=== PATIENT | female | born 1990 | race African-American/Black ===

== ENCOUNTER 2019-07-19 03:11 | Inpatient (IN) | payer MEDICAID ==
[~2019-07-19 03:11] MED LIST: Bupivacaine 0.25% 10 ML SDV ONE
[2019-07-19] MEDS ORDERED: Sodium Chloride 0.9% 10 ML Syringe FLUSH PRN (16:48)
[2019-07-19] MEDS ORDERED: Ondansetron 4 MG/2 ML SDV IVPUSH PRN ×2 (16:48→18:43)
[2019-07-19] MEDS ORDERED: Nalbuphine 10 MG/ML Syringe IVPUSH PRN (16:48)
[2019-07-19] MEDS ORDERED: Ampicillin 2 GM in Sodium Chloride 0.9% 100 ML IV ONE (17:00)
[2019-07-19] MEDS ORDERED: Oxytocin/Lactated Ringers 10 UNIT/1,000 ML BAG IV SCH ×2 (17:00)
--- NOTE | 2019-07-19 17:32 | PCM.LDHP ---
L&D History of Present Illness - General Date of Service: 07/19/19 Admit Problem/Dx: Patient Status Order with Admit Dx/Problem 07/19/19 16:48 Patient Status [ADT] Routine Admission Diagnosis/Problem Admission Diagnosis/Problem Source of Information: Patient History Limitations: Reports: No Limitations - History of Present Illness Introduction:: Slime Campa is a 28-year-old -0-0-3 at 39 weeks 3 days (VARSHA 07/23/2019) who presents for elective induction of labor. She reports that she has been having increased amounts of contractions and more frequent lower abdominal and pelvic pain. She has been having more constant back pain as well since her last appointment on 07/17/2019. She denies any leaking of fluid but thinks that her mucous plug came out with an increased amount of mucoid discharge last night. She denies any vaginal bleeding. She continues to have decreased movement at this time. Associated Symptoms: Reports: vaginal discharge (Mucus discharge), mild amount. Denies: vaginal bleeding, vaginal fluid Present Illness Comments:: Slime Campa is a 28-year-old -0-0-3 at 39 weeks 3 days (VARSHA 07/23/2019) who presents for elective induction of labor. Her has been overall uncomplicated and she has had routine care with myself, Dr. Barnes, starting at 16 weeks gestational age. She has not had any significant complications during this . She declined Tdap and flu vaccine during the . Her has been complicated by: * GBS positive with GBS positive swab at her visit at 36 weeks gestational age on 06/29/2019 * Anemia with hemoglobin of 9.1 on 06/29/2019. She was started on iron supplementation at that time. She has a history of anemia and required blood transfusions after her last delivery. * ancestry with negative hemoglobin solubility testing * cardiac echogenic focus at initial anatomy ultrasound. She had prequel genetic testing that was negative and showed low risk for trisomy 13, 18 or 21. Normal sex chromosomes and is a female infant. * Latex allergy labs Blood type: O+ Antibody screen: Negative First trimester hematocrit/hemoglobin: 36.0%/11.8 on 01/25/2019 Platelets: 285 on 01/25/2019 Urine culture: Negative on 06/29/2019 Rubella status: Immune Hepatitis B surface antigen: Negative RPR: Negative HIV: Negative Gonorrhea: Negative Chlamydia: Negative Hemoglobin solubility: Negative genetic testing: Prequel testing negative on 04/10/2019. Low risk for trisomy 13, 18 or 21. Normal sex chromosomal abnormalities. Female infant. Anatomy ultrasound: Normal anatomy, small echogenic focus with resolution on repeat ultrasound on 06/28/2019, posterior placenta, no previa, EFW at 47th percentile at initial anatomy ultrasound and at 28th percentile had ultrasound done around 36 weeks gestational age on 2019 One hour glucose tolerance test: 98 Second trimester hematocrit/hemoglobin: 36.8%/11.7 on 04/10/2019 Platelets: 281 on 04/10/2019 Third trimester hematocrit/hemoglobin: 30.3%/9.1 on 06/29/2019 Platelets: 281 on 06/29/2019 GBS status: Positive - Related Data Allergies/Adverse Reactions: Allergies Allergy/AdvReac Type Severity Reaction Status Date / Time latex Allergy Swelling Verified 07/02/19 16:54 Home Medications: Home Meds Butalb/Acetaminophen/Caffeine [Vdgtzn-Rmlkmfeh-Epxq 50-325-40] 1 each PO [History] Cyclobenzaprine [Flexeril] 10 mg PO BID 07/02/19 [History] Vits #93/Iron Fum/FA [ Formula Tablet] 07/02/19 [History] Past Medical History Gastrointestinal History: Reports: Pancreatitis 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: : 4 Para: 3 Musculoskeletal History: Reports: Back Pain, Chronic Hematologic History: Reports: Anemia, Blood Transfusion(s) (Following vaginal delivery in 2019) Social & Family History - Tobacco Use Smoking Status *Q: Never Smoker Tobacco Use Within Last Twelve Months: No - Tobacco Core Measures Tobacco Use/Smoking Within Last 30 Days: No Smokeless Tobacco Use in Last 30 Days: No - Alcohol Use Alcohol Use History: No - Recreational Drug Use Recreational Drug Use: No Drug Use in Last 12 Months: No - Living Situation & Occupation Living situation: Reports: Single, with Significant Other H&P Review of Systems - Review of Systems: Review Of Systems: See Below General: Denies: Fever, Chills, Malaise, Weakness, Fatigue HEENT: Denies: Headaches, Rhinitis, Post Nasal Drip, Sinus Congestion, Sore Throat, Visual Changes Pulmonary: Denies: Shortness of Breath, Wheezing, Pleuritic Chest Pain Cardiovascular: Denies: Chest Pain, Palpitations, Dyspnea on Exertion Gastrointestinal: Reports: Constipation. Denies: Abdominal Pain, Diarrhea, Nausea, Vomiting Genitourinary: Denies: Dysuria, Frequency, Burning, Pain, Urgency Musculoskeletal: Reports: Back Pain (Pelvic pain) Skin: Denies: Rash, Lesions Psychiatric: Denies: Depression, Anxiety Neurological: Denies: Headache, Syncope Hematologic/Lymphatic: Reports: Anemia L&D Exam - Exam Exam: See Below - Vital Signs Weight: 90.718 kg - OB Specific Contraction Intensity: Mild to Moderate Movement: Active Heart Tones: Present Heart Tones per Min: 135 (positive 15 x 15 accelerations, no decelerations ) Heart Rate (FHR) Variability: Moderate (6-25 bmp) Presentation: Vertex Estimated Weight: 7.5-8 lbs by [place] - Exam General: Alert, Oriented HEENT: Conjunctiva Clear, EOMI Neck: Supple, Trachea Midline Lungs: Clear to Auscultation, Normal Respiratory Effort Cardiovascular: Regular Rate, Regular Rhythm GI/Abdominal Exam: Soft, Non-Tender, No Distention, Other (gravid). No: Guarding, Rigid, Rebound Genitourinary: Normal external exam Extremities: Normal Inspection, Non-Tender, No Pedal Edema Skin: Warm, Dry, Intact Psychiatric: Alert, Normal Affect, Normal Mood - Problem List (1) 39 weeks gestation of SNOMED Code(s): 53042526 ICD Code: Z3A.39 - 39 WEEKS GESTATION OF Status: Acute Current Visit: Yes (2) GBS (group B Streptococcus carrier), +RV culture, currently SNOMED Code(s): 8709005777609, [id number], 9551327517490 ICD Code: O99.820 - STREPTOCOCCUS B CARRIER STATE COMPLICATING Status: Acute Current Visit: Yes (3) Anemia affecting SNOMED Code(s): 46497491 ICD Code: O99.019 - ANEMIA COMPLICATING , UNSPECIFIED TRIMESTER Status: Acute Current Visit: Yes (4) ancestry requiring population-specific genetic screening SNOMED Code(s): 09900728, 395123797, 180982484 ICD Code: Z13.79 - ENCNTR FOR OTH SCREENING FOR GENETIC AND CHROMSOML ANOMALIES Status: Acute Current Visit: Yes Problem List Initiated/Reviewed/Updated: Yes Orders Last 24hrs: Active Orders 24 hr Category Date Time Status Patient Status [ADT] Routine ADT 07/19/19 16:48 Active Activity as Tolerated [RC] PFP Care 07/19/19 16:48 Active Communication Order [RC] ASDIRECTED Care 07/19/19 16:48 Active Heart Tones [RC] ASDIRECTED Care 07/19/19 16:49 Active Non Stress Test [RC] PER UNIT ROUTINE Care 07/19/19 16:48 Active Notify Provider [RC] PFP Care 07/19/19 16:48 Active Notify Provider [RC] PRN Care 07/19/19 16:48 Active Peripheral IV Care [RC] . DIRECTED Care 07/19/19 16:49 Active Pump Management, Intrathecal [RC] ASDIRECTED Care 07/19/19 16:51 Active Urinary Catheter Assessment [RC] ASDIRECTED Care 07/19/19 16:48 Active Vital Signs [RC] PER UNIT ROUTINE Care 07/19/19 16:48 Active Regular Diet [DIET] Diet 07/19/19 Breakfast Active CBC WITH AUTO DIFF [HEME] Stat Lab 07/19/19 17:10 Received RAPID PLASMA REAGIN,RPR [CHEM] Routine Lab 07/19/19 17:10 Received TYPE AND SCREEN [BBK] Stat Lab 07/19/19 17:10 Received Ampicillin 1 gm Med 07/19/19 21:00 Active Sodium Chloride 0.9% [Normal Saline] 100 ml IV Q4H Ampicillin 2 gm Med 07/19/19 17:00 Active Sodium Chloride 0.9% [Normal Saline] 100 ml IV ONETIME Lactated Ringers [Ringers, Lactated] 1,000 ml Med 07/19/19 17:00 Active IV ASDIRECTED Lidocaine 1% [Xylocaine 1%] Med 07/19/19 22:00 Once 50 ml INJECT ONETIME ONE Nalbuphine [Nubain] Med 07/19/19 16:48 Active 10 mg IVPUSH Q2H PRN Ondansetron [Zofran] Med 07/19/19 16:48 Active 4 mg IVPUSH Q4H PRN Oxytocin/Lactated Ringers [Pitocin in LR 10 Units/1,000 Med 07/19/19 17:00 Active ML] 10 unit in 1,000 ml IV .CONTINUOUS Oxytocin/Lactated Ringers [Pitocin in LR 10 Units/1,000 Med 07/19/19 17:00 Active ML] 10 unit in 1,000 ml IV TITRATE Sodium Chloride 0.9% [Saline Flush] Med 07/19/19 16:48 Active 10 ml FLUSH ASDIRECTED PRN Electronic Heart Tones Ext w TOCO [WOMSER] Ot 07/19/19 16:48 Ordered Routine Electronic Heart Tones Internal [WOMSER] Per Unit Ot 07/19/19 16:48 Ordered Routine Peripheral IV Insertion Adult [OM.PC] Routine Ot 07/19/19 16:48 Ordered Resuscitation Status Routine Resus Stat 07/19/19 16:48 Ordered Medication Orders Ampicillin Sodium 2 gm/ Sodium (Chloride) 100 mls @ 200 mls/hr IV ONETIME ONE Stop: 07/19/19 17:29 Ampicillin Sodium 1 gm/ Sodium (Chloride) 100 mls @ 200 mls/hr IV Q4H DAI Lactated Ringer's (Ringers, Lactated) 1,000 mls @ 100 mls/hr IV ASDIRECTED DAI Oxytocin/Lactated Ringer's (Pitocin In Lr 10 Units/1,000 Ml) 10 unit in 1,000 mls @ 100 mls/hr IV .CONTINUOUS DAI; Protocol Oxytocin/Lactated Ringer's (Pitocin In Lr 10 Units/1,000 Ml) 10 unit in 1,000 mls @ 12 mls/hr IV TITRATE DAI; Protocol Lidocaine HCl (Xylocaine 1%) 50 ml INJECT ONETIME ONE Stop: 07/19/19 22:01 Nalbuphine HCl (Nubain) 10 mg IVPUSH Q2H PRN PRN Reason: Pain Ondansetron HCl (Zofran) 4 mg IVPUSH Q4H PRN PRN Reason: Nausea/Vomiting Sodium Chloride (Saline Flush) 10 ml FLUSH ASDIRECTED PRN PRN Reason: Keep Vein Open Assessment/Plan Comment:: Refer to observation for elective induction of labor Start Pitocin for induction of labor after approximately 2 to 3 hours of starting dose of ampicillin for GBS prophylaxis Continuous monitoring Place IV and have Lactated Ringer's at 125 ml/hr May have small amounts of regular diet Activity as tolerated May have epidural as desired Plans to breast and bottle feed after delivery Start on ampicillin 2 g now and have 1 g every 4 hours after for GBS prophylaxis Anticipate vaginal delivery unless otherwise indicated Plan is for artificial rupture of membranes once patient has had at least 4 hours of antibiotics for GBS prophylaxis Norberto Barnes MD 5:41 PM 07/19/2019
[2019-07-19] MEDS ORDERED: ePHEDrine 50 MG/ML SDV IVPUSH PRN (18:43)
[2019-07-19] MEDS ORDERED: fentaNYL 100 MCG/2 ML SDV EPIDUR PRN (18:43)
--- NOTE | 2019-07-19 18:43 | PCM.PREANE ---
Preanesthetic Assessment - Anesthesia/Transfusion/Family Hx Anesthesia History: Prior Anesthesia Without Reaction (epidurals only) Family History of Anesthesia Reaction: No Transfusion History: Prior Transfusion Without Reaction Intubation History: Unknown - Review of Systems General: No Symptoms Pulmonary: No Symptoms Cardiovascular: No Symptoms Gastrointestinal: No Symptoms, Constipation Neurological: No Symptoms (chronic back pain(3-4)), Headache (migraines: 7 10 current headache.) Other: Reports: None (History of pancreatitis 2009/Anemia(chronic)) - Physical Assessment NPO Status Date: 07/19/19 NPO Status Time: 19:35 Vital Signs: HR:106 BP:109/67 Resp:17 Temp:98.4 Sat:99% Height: 1.65 m Weight: 90.718 kg ASA Class: 2 Mental Status: Alert & Oriented x3 Airway Class: Mallampati = 2 Dentition: Reports: Normal Dentition, Caries Thyro-Mental Finger Breadths: 3 Mouth Opening Finger Breadths: 3 ROM/Head Extension: Full Lungs: Clear to Auscultation, Normal Respiratory Effort Cardiovascular: Regular Rate, Regular Rhythm, No Murmurs - Lab Values: Laboratory Last Values WBC 11.34 K/mm3 (3.98-10.04) H 07/19/19 17:10 RBC 3.58 M/mm3 (3.98-5.22) L 07/19/19 17:10 Hgb 9.0 gm/dl (11.2-15.7) L 07/19/19 17:10 Hct 30.5 % (34.1-44.9) L 07/19/19 17:10 MCV 85.2 fl (79.4-94.8) D 07/19/19 17:10 MCH 25.1 pg (25.6-32.2) L 07/19/19 17:10 MCHC 29.5 g/dl (32.2-35.5) L 07/19/19 17:10 RDW Std Deviation 51.2 fL (36.4-46.3) H 07/19/19 17:10 Plt Count 310 K/mm3 (182-369) 07/19/19 17:10 MPV 9.2 fl (9.4-12.3) L 07/19/19 17:10 Neut % (Auto) 65.8 % (34.0-71.1) 07/19/19 17:10 Lymph % (Auto) 20.7 % (19.3-51.7) 07/19/19 17:10 [place] % (Auto) 11.2 % (4.7-12.5) 07/19/19 17:10 Eos % (Auto) 0.7 (0.7-5.8) 07/19/19 17:10 Baso % (Auto) 0.4 % (0.1-1.2) 07/19/19 17:10 Neut # (Auto) 7.46 K/mm3 (1.56-6.13) H 07/19/19 17:10 Lymph # (Auto) 2.35 K/mm3 (1.18-3.74) 07/19/19 17:10 [place] # (Auto) 1.27 K/mm3 (0.24-0.36) H 07/19/19 17:10 Eos # (Auto) 0.08 K/mm3 (0.04-0.36) 07/19/19 17:10 Baso # (Auto) 0.04 K/mm3 (0.01-0.08) 07/19/19 17:10 Manual Slide Review Abnormal smear 07/19/19 17:10 Blood Type O POSITIVE 07/19/19 17:10 Gel Antibody Screen Negative 07/19/19 17:10 Above labs reviewed and noted and within acceptable ranges to proceed with epidural if desired. 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: Musculoskeletal History: Reports: Back Pain, Chronic Hematologic History: Reports: Anemia, Blood Transfusion(s) (Following vaginal delivery in 2019) - SUBSTANCE USE Smoking Status *Q: Never Smoker Tobacco Use Within Last Twelve Months: No Recreational Drug Use History: No - HOME MEDS Home Medications: Home Meds Butalb/Acetaminophen/Caffeine [Nqdjhe-Ecoysqed-Xidb 50-325-40] 1 each PO [History] Cyclobenzaprine [Flexeril] 10 mg PO BID 07/02/19 [History] Vits #93/Iron Fum/FA [ Formula Tablet] 07/02/19 [History] - CURRENT (IN HOUSE) MEDS Current Meds: Current Medications Ampicillin Sodium 1 gm/ Sodium (Chloride) 100 mls @ 200 mls/hr IV Q4H DAI Lactated Ringer's (Ringers, Lactated) 1,000 mls @ 100 mls/hr IV ASDIRECTED DAI Oxytocin/Lactated Ringer's (Pitocin In Lr 10 Units/1,000 Ml) 10 unit in 1,000 mls @ 100 mls/hr IV .CONTINUOUS DAI; Protocol Oxytocin/Lactated Ringer's (Pitocin In Lr 10 Units/1,000 Ml) 10 unit in 1,000 mls @ 12 mls/hr IV TITRATE DAI; Protocol Lidocaine HCl (Xylocaine 1%) 50 ml INJECT ONETIME ONE Stop: 07/19/19 22:01 Nalbuphine HCl (Nubain) 10 mg IVPUSH Q2H PRN PRN Reason: Pain Ondansetron HCl (Zofran) 4 mg IVPUSH Q4H PRN PRN Reason: Nausea/Vomiting Sodium Chloride (Saline Flush) 10 ml FLUSH ASDIRECTED PRN PRN Reason: Keep Vein Open Discontinued Medications Ampicillin Sodium 2 gm/ Sodium (Chloride) 100 mls @ 200 mls/hr IV ONETIME ONE Stop: 07/19/19 17:29 Last Admin: 07/19/19 17:43 Dose: 200 mls/hr
[2019-07-19] MEDS ORDERED: Bupivacaine/fentaNYL/NS 100 ML Bag EPIDUR SCH (18:45)
[2019-07-19] MEDS ORDERED: Acetaminophen 325 MG Tab PO PRN (19:44)
[2019-07-19] MEDS: Lactated Ringers 1,000 ML IV SCH (20:48)
[2019-07-19] MEDS: Ampicillin 1 GM in Sodium Chloride 0.9% 100 ML IV SCH (20:53)
[2019-07-19] MEDS ORDERED: Lidocaine 1% 50 ML MDV INJECT ONE (22:00)
--- NOTE | 2019-07-19 22:01 | PCM.PNLD ---
Labor Progress Note - VS & Meds Vital Signs: Last Vital Signs Temp 36.4 C 07/19/19 19:15 Pulse 99 07/19/19 19:15 Resp 14 07/19/19 19:15 BP 127/71 07/19/19 19:15 Pulse Ox Active Medications: Current Medications Acetaminophen (Tylenol) 650 mg PO Q4H PRN PRN Reason: Headache Last Admin: 07/19/19 19:55 Dose: 650 mg Ephedrine Sulfate (Ephedrine Sulfate) 5 mg IVPUSH ASDIRECTED PRN PRN Reason: Hypotension Fentanyl (Sublimaze) 100 mcg EPIDUR Q3H PRN PRN Reason: Pain Fentanyl/Bupivacaine HCl (Fentanyl/Bupivacaine/Ns 2 Mcg-0.125% 100 Ml) 100 ml EPIDUR ASDIRECTED DAI Ampicillin Sodium 1 gm/ Sodium (Chloride) 100 mls @ 200 mls/hr IV Q4H DAI Last Admin: 07/19/19 20:53 Dose: 200 mls/hr Lactated Ringer's (Ringers, Lactated) 1,000 mls @ 100 mls/hr IV ASDIRECTED DAI Last Admin: 07/19/19 20:48 Dose: 100 mls/hr Oxytocin/Lactated Ringer's (Pitocin In Lr 10 Units/1,000 Ml) 10 unit in 1,000 mls @ 100 mls/hr IV .CONTINUOUS DAI; Protocol Oxytocin/Lactated Ringer's (Pitocin In Lr 10 Units/1,000 Ml) 10 unit in 1,000 mls @ 12 mls/hr IV TITRATE DAI; Protocol Last Admin: 07/19/19 20:50 Dose: 2 munits/min, 12 mls/hr Lidocaine HCl (Xylocaine 1%) 50 ml INJECT ONETIME ONE Stop: 07/19/19 22:01 Nalbuphine HCl (Nubain) 10 mg IVPUSH Q2H PRN PRN Reason: Pain Ondansetron HCl (Zofran) 4 mg IVPUSH Q4H PRN PRN Reason: Nausea/Vomiting Ondansetron HCl (Zofran) 4 mg IVPUSH ONETIME PRN PRN Reason: Nausea/Vomiting Sodium Chloride (Saline Flush) 10 ml FLUSH ASDIRECTED PRN PRN Reason: Keep Vein Open Discontinued Medications Ampicillin Sodium 2 gm/ Sodium (Chloride) 100 mls @ 200 mls/hr IV ONETIME ONE Stop: 07/19/19 17:29 Last Admin: 07/19/19 17:43 Dose: 200 mls/hr - Uterine Contractions Uterine Monitoring Mode: External [place] Contraction Frequency (min): irregular Contraction Duration (sec): 30-75 Contraction Intensity: Mild to Moderate Uterine Resting Tone: Soft - Monitoring Monitor Mode: Doppler/Auscultation Heart Rate (FHR) Baseline: 135 Heart Rate (FHR) Variability: Moderate (6-25 bmp) Accelerations: Present, 15x15 Decelerations: None Strip Review: Category I - Vaginal Exam Dilation (cm): 4 Effacement (Percent): 70 Station: -3 Cervical Position: Anterior Sterile Vaginal Exam Performed By: Norberto Barnes Vaginal Exam Comment: Artificial rupture of membranes performed with [place] with return of clear fluid. Mother and tolerated procedure without difficulty. - Labor Progress (Free Text) Labor Progress: Continue induction of labor with Pitocin Continuous monitoring with rupture of membranes Continue ampicillin for GBS prophylaxis Routine vitals Patient may have epidural for anesthesia as desired Anticipate vaginal delivery unless otherwise indicated Norberto Barnes MD 10:01 PM 07/19/2019
[2019-07-20] MEDS: Lactated Ringers 1,000 ML IV SCH ×2 (00:28→00:30)
[2019-07-20] MEDS: Ampicillin 1 GM in Sodium Chloride 0.9% 100 ML IV SCH (00:54)
--- NOTE | 2019-07-20 03:43 | PCM.DEL ---
L & D Note - General Info Date of Service: 07/20/19 Mother's Due Date: 07/23/19 - Delivery Note Labor: Augmented by ARM, Augmented by Oxytocin Delivery Outcome: Livebirth Delivery Method: Spontaneous Vaginal Delivery-Single Presentation: Right Occiput Anterior (WOODROW) Nuchal Cord: None Anesthesia Type: Epidural Amniotic Fluid Description: Clear Episiotomy Type: None Laceration: Labial (Bilateral superficial abrasions of labia minora) Placenta: Intact, Spontaneous Cord: 3 Vessels Estimated Blood Loss: 200 Resuscitation Needed: No : Bulb Syringe, Stimulated, Warmed, Vandiver Used Provider: Norberto Barnes Score 1 min: 9 Score 5 min: 9 Second Stage Interventions: Reports: Pushing Effectively, Pushing, Stirrups/Leg Supports Delivery Comments (Free Text/Narrative):: Stage I: Slime Campa was admitted for elective induction of labor. On admission her cervix was dilated to 3 cm. She was GBS positive and was started on ampicillin for GBS prophylaxis. She received a total of 3 doses prior to delivery. She was started on Pitocin for induction of contractions approximately 2 hours after she was started on antibiotics. She had artificial rupture membranes with clear fluid. She was given an epidural for anesthesia. She progressed to complete and pushing. Stage II: On 07/20/2019 she had a normal vaginal delivery of a live female at 03:11. Apgars of 9 & 9. Weight of 3660 g (8 lbs 1.1 oz). Length of 20 inches. There was no nuchal cord. was delivered in WOODROW position. The cord was doubly clamped and cut by father of the infant. was placed on mother's abdomen. Stage III: She had a spontaneous delivery of an intact placenta in Susan presentation. Three vessel cord. She was given pitocin and fundal massage. She had superficial abrasions on the bilateral labia minora that were hemostatic and not repaired. Mom and baby were stable to recovery. EBL of 200 mL. Norberto Barnes MD 3:39 AM 07/20/2019 Induction Criteria - Martinez Score Martinez Score Dilation: 3-4 cm Martinez Score Effacement: 60-70% Martinez Score 's Station: -3 Martinez Score Consistency: Soft Martinez Score Cervix Position: Anterior Martinez Score Total: 8 Martinez Score Presenting Part: Reports: Cephalic - Induction Gestational Age >/= 39 wks: Yes Estimated Pelvis: Reports: Adequate Reassuring Monitoring Strip: Yes Absence of Tachy Systole: Yes - Augmentation Estimated Pelvis: Reports: Adequate Weight Estimated:: Reports: AGA Reassuring Monitoring Strip: Yes Absence of Tachy Systole: Yes - General Info Date of Service: 07/20/19 - Patient Data Vitals - Most Recent: Last Vital Signs Temp 36.4 C 07/19/19 19:15 Pulse 99 07/19/19 19:15 Resp 14 07/19/19 19:15 BP 127/71 07/19/19 19:15 Pulse Ox Weight - Most Recent: 90.718 kg Lab Results Last 24 Hours: Laboratory Results - last 24 hr 07/19/19 07/19/19 07/19/19 Range/Units 17:10 17:10 17:10 WBC 11.34 H (3.98-10.04) K/mm3 RBC 3.58 L (3.98-5.22) M/mm3 Hgb 9.0 L (11.2-15.7) gm/dl Hct 30.5 L (34.1-44.9) % MCV 85.2 D (79.4-94.8) fl MCH 25.1 L (25.6-32.2) pg MCHC 29.5 L (32.2-35.5) g/dl RDW Std Deviation 51.2 H (36.4-46.3) fL Plt Count 310 (182-369) K/mm3 MPV 9.2 L (9.4-12.3) fl Neut % (Auto) 65.8 (34.0-71.1) % Lymph % (Auto) 20.7 (19.3-51.7) % Major % (Auto) 11.2 (4.7-12.5) % Eos % (Auto) 0.7 (0.7-5.8) Baso % (Auto) 0.4 (0.1-1.2) % Neut # (Auto) 7.46 H (1.56-6.13) K/mm3 Lymph # (Auto) 2.35 (1.18-3.74) K/mm3 Major # (Auto) 1.27 H (0.24-0.36) K/mm3 Eos # (Auto) 0.08 (0.04-0.36) K/mm3 Baso # (Auto) 0.04 (0.01-0.08) K/mm3 Manual Slide Review Abnormal smear RPR Non-reactive (NONREACTIVE) Blood Type O POSITIVE Gel Antibody Screen Negative Med Orders - Current: Current Medications Acetaminophen (Tylenol) 650 mg PO Q4H PRN PRN Reason: Headache Last Admin: 07/19/19 19:55 Dose: 650 mg Ephedrine Sulfate (Ephedrine Sulfate) 5 mg IVPUSH ASDIRECTED PRN PRN Reason: Hypotension Fentanyl (Sublimaze) 100 mcg EPIDUR Q3H PRN PRN Reason: Pain Fentanyl/Bupivacaine HCl (Fentanyl/Bupivacaine/Ns 2 Mcg-0.125% 100 Ml) 100 ml EPIDUR ASDIRECTED DAI Ampicillin Sodium 1 gm/ Sodium (Chloride) 100 mls @ 200 mls/hr IV Q4H DAI Last Admin: 07/20/19 00:54 Dose: 200 mls/hr Lactated Ringer's (Ringers, Lactated) 1,000 mls @ 100 mls/hr IV ASDIRECTED DAI Last Admin: 07/20/19 00:30 Dose: 100 mls/hr Oxytocin/Lactated Ringer's (Pitocin In Lr 10 Units/1,000 Ml) 10 unit in 1,000 mls @ 100 mls/hr IV .CONTINUOUS DAI; Protocol Oxytocin/Lactated Ringer's (Pitocin In Lr 10 Units/1,000 Ml) 10 unit in 1,000 mls @ 12 mls/hr IV TITRATE DAI; Protocol Last Titration: 07/20/19 01:54 Dose: 14 munits/min, 84 mls/hr Nalbuphine HCl (Nubain) 10 mg IVPUSH Q2H PRN PRN Reason: Pain Ondansetron HCl (Zofran) 4 mg IVPUSH Q4H PRN PRN Reason: Nausea/Vomiting Ondansetron HCl (Zofran) 4 mg IVPUSH ONETIME PRN PRN Reason: Nausea/Vomiting Sodium Chloride (Saline Flush) 10 ml FLUSH ASDIRECTED PRN PRN Reason: Keep Vein Open Discontinued Medications Ampicillin Sodium 2 gm/ Sodium (Chloride) 100 mls @ 200 mls/hr IV ONETIME ONE Stop: 07/19/19 17:29 Last Admin: 07/19/19 17:43 Dose: 200 mls/hr Lidocaine HCl (Xylocaine 1%) 50 ml INJECT ONETIME ONE Stop: 07/19/19 22:01 - Problem List & Annotations (1) 39 weeks gestation of SNOMED Code(s): 38927993 Code(s): Z3A.39 - 39 WEEKS GESTATION OF Status: Acute Current Visit: Yes (2) GBS (group B Streptococcus carrier), +RV culture, currently SNOMED Code(s): 5865670800325, 000837409, 1038295898542 Code(s): O99.820 - STREPTOCOCCUS B CARRIER STATE COMPLICATING Status: Acute Current Visit: Yes (3) Anemia affecting SNOMED Code(s): 30815690 Code(s): O99.019 - ANEMIA COMPLICATING , UNSPECIFIED TRIMESTER Status: Acute Current Visit: Yes (4) ancestry requiring population-specific genetic screening SNOMED Code(s): 66318117, 848300773, 946623732 Code(s): Z13.79 - ENCNTR FOR OTH SCREENING FOR GENETIC AND CHROMSOML ANOMALIES Status: Acute Current Visit: Yes (5) Vaginal delivery SNOMED Code(s): 547222550 Code(s): O80 - ENCOUNTER FOR FULL-TERM UNCOMPLICATED DELIVERY Status: Acute Current Visit: Yes - Problem List Review Problem List Initiated/Reviewed/Updated: Yes - My Orders Last 24 Hours: My Active Orders 07/19/19 16:48 Patient Status [ADT] Routine Activity as Tolerated [RC] PFP Communication Order [RC] ASDIRECTED Notify Provider [RC] PFP Notify Provider [RC] PRN Urinary Catheter Assessment [RC] ASDIRECTED Vital Signs [RC] PER UNIT ROUTINE Nalbuphine [Nubain] 10 mg IVPUSH Q2H PRN Ondansetron [Zofran] 4 mg IVPUSH Q4H PRN Sodium Chloride 0.9% [Saline Flush] 10 ml FLUSH ASDIRECTED PRN Electronic Heart Tones Ext w TOCO [WOMSER] Routine Electronic Heart Tones Internal [WOMSER] Per Unit Routine Peripheral IV Insertion Adult [OM.PC] Routine Resuscitation Status Routine 07/19/19 16:49 Peripheral IV Care [RC] . DIRECTED 07/19/19 16:51 Pump Management, Intrathecal [RC] ASDIRECTED 07/19/19 17:00 Lactated Ringers [Ringers, Lactated] 1,000 ml IV ASDIRECTED Oxytocin/Lactated Ringers [Pitocin in LR 10 Units/1,000 ML] 10 unit in 1,000 ml IV .CONTINUOUS Oxytocin/Lactated Ringers [Pitocin in LR 10 Units/1,000 ML] 10 unit in 1,000 ml IV TITRATE 07/19/19 19:44 Acetaminophen [Tylenol] 650 mg PO Q4H PRN 07/19/19 21:00 Ampicillin 1 gm Sodium Chloride 0.9% [Normal Saline] 100 ml IV Q4H 07/19/19 Breakfast Regular Diet [DIET] 07/20/19 03:31 Patient Status Manage Transfer [TRANSFER] Routine - Plan Plan:: Admit to inpatient following normal spontaneous vaginal delivery Continue Pitocin per unit protocol following delivery of placenta and lactated Ringer's until tolerating regular diet Regular diet Vitals per unit routine Ibuprofen and Tylenol for pain control Assist with breast and bottlefeeding as needed Continue to monitor lochia Recheck CBC at approximately 9:30 AM on day #0 Anticipate discharge home on day #1 or 2 depending on status Norberto Barnes MD 3:39 AM 07/20/2019
[2019-07-20] MEDS ORDERED: Docusate Sodium 100 MG Cap PO PRN (04:23)
[2019-07-20] MEDS ORDERED: Acetaminophen 325 MG Tab PO PRN (04:23)
[2019-07-20] MEDS ORDERED: Hydrocortisone Acetate 25 MG Supp RECTAL PRN (04:23)
[2019-07-20] MEDS ORDERED: Oxytocin/Lactated Ringers 10 UNIT/1,000 ML BAG IV SCH (04:23)
[2019-07-20] MEDS ORDERED: Diphtheria,Pertussis(Acell),Tetanus Vaccine 0.5 ML Syringe IM ONE (04:23)
[2019-07-20] MEDS ORDERED: Witch Hazel Medicated Pads 40/Jar TOP PRN (04:23)
[2019-07-20] MEDS: Ibuprofen 600 MG Tab PO PRN ×4 (04:51→22:05)
[2019-07-20] MEDS: Benzocaine/Menthol 20%-0.5% Spray 56 GM Canister TOP PRN (04:51)
--- NOTE | 2019-07-20 08:14 | PCM48HPAN ---
Post Anesthesia Note - EVALUATION WITHIN 48HRS OF ANESTHETIC Vital Signs in Normal Range: Yes Patient Participated in Evaluation: Yes Respiratory Function Stable: Yes Airway Patent: Yes Cardiovascular Function Stable: Yes Hydration Status Stable: Yes Pain Control Satisfactory: Yes Nausea and Vomiting Control Satisfactory: Yes Mental Status Recovered: Yes Vital Signs: Last Vital Signs Temp 36.4 C 07/20/19 05:48 Pulse 87 07/20/19 05:48 Resp 14 07/20/19 05:48 BP 103/59 L 07/20/19 05:48 Pulse Ox 98 07/20/19 05:48
[2019-07-20] MEDS: Ferrous Sulfate 324 MG Tab.EC PO SCH (10:47)
[2019-07-21] MEDS: Ferrous Sulfate 324 MG Tab.EC PO SCH ×2 (06:36→09:00)
[2019-07-21] MEDS: Ibuprofen 600 MG Tab PO PRN (09:00)
[2019-07-21] MEDS: Prenatal Multivitamin with Calcium/Folic Acid/Iron Tab PO SCH (09:00)
--- NOTE | 2019-07-21 09:25 | PCM.SN ---
- Free Text/Narrative Note: Post Progress Note PPD # 1 Subjective: Doing well overall. Ambulating without difficulty. Lochia minimal. Voiding without difficulty. Tolerating regular diet without nausea or vomiting. Pain overall controlled with oral medications. Reports that she is having some mild cramping and pelvic pain after breast-feeding. Breast and bottlefeeding with minimal difficulty. Objective: Vitals: Vital Signs - 24 hr 07/20/19 07/20/19 07/21/19 15:04 20:23 05:36 Temperature 36.6 C 36.5 C Pulse, 94 98 78 Peripheral Respiratory 16 Rate Blood Pressure 120/64 117/73 113/72 O2 Sat by Pulse 98 96 97 Oximetry 07/21/19 09:00 Temperature 36.7 C Pulse, Peripheral Respiratory Rate Blood Pressure O2 Sat by Pulse Oximetry Physical Exam General: Alert and oriented, no acute distress Lungs: Clear to auscultation bilaterally Heart: Regular rate and rhythm Abdomen: Soft, minimal appropriate tenderness, non-distended, fundus midline, nontender, and at the umbilicus Extremities: Trace edema in bilateral lower extremities to just above the ankles Laboratory Tests 07/19/19 07/19/19 07/19/19 Range/Units 17:10 17:10 17:10 WBC 11.34 H (3.98-10.04) K/mm3 RBC 3.58 L (3.98-5.22) M/mm3 Hgb 9.0 L (11.2-15.7) gm/dl Hct 30.5 L (34.1-44.9) % MCV 85.2 D (79.4-94.8) fl MCH 25.1 L (25.6-32.2) pg MCHC 29.5 L (32.2-35.5) g/dl RDW Std Deviation 51.2 H (36.4-46.3) fL Plt Count 310 (182-369) K/mm3 MPV 9.2 L (9.4-12.3) fl Neut % (Auto) 65.8 (34.0-71.1) % Lymph % (Auto) 20.7 (19.3-51.7) % [place] % (Auto) 11.2 (4.7-12.5) % Eos % (Auto) 0.7 (0.7-5.8) Baso % (Auto) 0.4 (0.1-1.2) % Neut # (Auto) 7.46 H (1.56-6.13) K/mm3 Lymph # (Auto) 2.35 (1.18-3.74) K/mm3 [place] # (Auto) 1.27 H (0.24-0.36) K/mm3 Eos # (Auto) 0.08 (0.04-0.36) K/mm3 Baso # (Auto) 0.04 (0.01-0.08) K/mm3 Manual Slide Review Abnormal smear RPR Non-reactive (NONREACTIVE) Blood Type O POSITIVE Gel Antibody Screen Negative 07/20/19 Range/Units 09:20 WBC 15.42 H (3.98-10.04) K/mm3 RBC 3.22 L (3.98-5.22) M/mm3 Hgb 8.4 L (11.2-15.7) gm/dl Hct 27.6 L (34.1-44.9) % MCV 85.7 (79.4-94.8) fl MCH 26.1 (25.6-32.2) pg MCHC 30.4 L (32.2-35.5) g/dl RDW Std Deviation 51.1 H (36.4-46.3) fL Plt Count 271 (182-369) K/mm3 MPV 9.3 L (9.4-12.3) fl Neut % (Auto) 75.5 H (34.0-71.1) % Lymph % (Auto) 15.4 L (19.3-51.7) % [place] % (Auto) 7.7 (4.7-12.5) % Eos % (Auto) 0.4 L (0.7-5.8) Baso % (Auto) 0.2 (0.1-1.2) % Neut # (Auto) 11.64 H (1.56-6.13) K/mm3 Lymph # (Auto) 2.38 (1.18-3.74) K/mm3 [place] # (Auto) 1.19 H (0.24-0.36) K/mm3 Eos # (Auto) 0.06 (0.04-0.36) K/mm3 Baso # (Auto) 0.03 (0.01-0.08) K/mm3 Manual Slide Review Abnormal smear RPR (NONREACTIVE) Blood Type Gel Antibody Screen ASSESSMENT: 28-year-old female -0-0-4 s/p normal vaginal delivery PPD #, complicated by GBS positive status, anemia with hemoglobin of 8.4 after delivery, ancestry with negative hemoglobin solubility testing, latex allergy and cardiac echogenic focus that resolved on follow-up ultrasound and also with normal genetic testing PLAN: Doing well Breast and bottlefeeding with minimal difficulty. Assist as needed Lochia minimal. Continue to monitor for appropriate lochia. Continue routine care Patient without signs or symptoms of anemia. Denies any lightheadedness, dizziness or shortness of breath with ambulation. Patient with hemoglobin of 8.4 after delivery on day #0. Did not recheck her CBC this morning because she was asymptomatic. Recommend for patient to continue to increase iron intake to help her body rebuild her red blood cell count. Anticipate discharge home today Norberto Barnes MD 9:24 AM 07/21/2019
--- NOTE | 2019-07-21 09:29 | PCM.DCSUM1 ---
Discharge Summary - Hospital Course Free Text/Narrative:: - General Info Date of Service: 07/20/19 Mother's Due Date: 07/23/19 - Delivery Note Labor: Augmented by ARM, Augmented by Oxytocin Delivery Outcome: Livebirth Delivery Method: Spontaneous Vaginal Delivery-Single Presentation: Right Occiput Anterior (WOODROW) Nuchal Cord: None Anesthesia Type: Epidural Amniotic Fluid Description: Clear Episiotomy Type: None Laceration: Labial (Bilateral superficial abrasions of labia minora) Placenta: Intact, Spontaneous Cord: 3 Vessels Estimated Blood Loss: 200 Resuscitation Needed: No : Bulb Syringe, Stimulated, Warmed, [place] Used Provider: Norberto Barnes Score 1 min: 9 Score 5 min: 9 Second Stage Interventions: Reports: Pushing Effectively, Pushing, Stirrups/Leg Supports Delivery Comments (Free Text/Narrative):: Stage I: Slime Campa was admitted for elective induction of labor. On admission her cervix was dilated to 3 cm. She was GBS positive and was started on ampicillin for GBS prophylaxis. She received a total of 3 doses prior to delivery. She was started on Pitocin for induction of contractions approximately 2 hours after she was started on antibiotics. She had artificial rupture membranes with clear fluid. She was given an epidural for anesthesia. She progressed to complete and pushing. Stage II: On 07/20/2019 she had a normal vaginal delivery of a live female at 03:11. Apgars of 9 & 9. Weight of 3660 g (8 lbs 1.1 oz). Length of 20 inches. There was no nuchal cord. Infant was delivered in WOODROW position. The cord was doubly clamped and cut by father of the infant. was placed on mother's abdomen. Stage III: She had a spontaneous delivery of an intact placenta in Susan presentation. Three vessel cord. She was given pitocin and fundal massage. She had superficial abrasions on the bilateral labia minora that were hemostatic and not repaired. Mom and baby were stable to recovery. EBL of 200 mL. HPI Initial Comments: - General Info Date of Service: 07/20/19 Mother's Due Date: 07/23/19 - Delivery Note Labor: Augmented by ARM, Augmented by Oxytocin Delivery Outcome: Livebirth Infant Delivery Method: Spontaneous Vaginal Delivery-Single Presentation: Right Occiput Anterior (WOODROW) Nuchal Cord: None Anesthesia Type: Epidural Amniotic Fluid Description: Clear Episiotomy Type: None Laceration: Labial (Bilateral superficial abrasions of labia minora) Placenta: Intact, Spontaneous Cord: 3 Vessels Estimated Blood Loss: 200 Resuscitation Needed: No : Bulb Syringe, Stimulated, Warmed, Aynor Used Provider: Norberto Barnes Score 1 min: 9 Score 5 min: 9 Second Stage Interventions: Reports: Pushing Effectively, Pushing, Stirrups/Leg Supports Delivery Comments (Free Text/Narrative):: Stage I: Slime Campa was admitted for elective induction of labor. On admission her cervix was dilated to 3 cm. She was GBS positive and was started on ampicillin for GBS prophylaxis. She received a total of 3 doses prior to delivery. She was started on Pitocin for induction of contractions approximately 2 hours after she was started on antibiotics. She had artificial rupture membranes with clear fluid. She was given an epidural for anesthesia. She progressed to complete and pushing. Stage II: On 07/20/2019 she had a normal vaginal delivery of a live female at 03:11. Apgars of 9 & 9. Weight of 3660 g (8 lbs 1.1 oz). Length of 20 inches. There was no nuchal cord. Infant was delivered in WOODROW position. The cord was doubly clamped and cut by father of the infant. Infant was placed on mother's abdomen. Stage III: She had a spontaneous delivery of an intact placenta in Susan presentation. Three vessel cord. She was given pitocin and fundal massage. She had superficial abrasions on the bilateral labia minora that were hemostatic and not repaired. Mom and baby were stable to recovery. EBL of 200 mL. Brief History: - General Info. Date of Service: 07/20/19. Mother's Due Date: 07/23/19. - Delivery Note. Labor: Augmented by ARM, Augmented by Oxytocin. Delivery Outcome: Livebirth. Infant Delivery Method: Spontaneous Vaginal Delivery-Single. Presentation: Right Occiput Anterior (WOODROW). Nuchal Cord : None. Anesthesia Type: Epidural. Amniotic Fluid Description: Clear. Episiotomy Type: None. Laceration: Labial (Bilateral superficial abrasions of labia minora). Placenta: Intact, Spontaneous. Cord: 3 Vessels. Estimated Blood Loss: 200. Resuscitation Needed: No. [place]: Bulb Syringe, Stimulated, Warmed, Aynor Used. Provider: Norberto Barnes. Score 1 min: 9. Score 5 min: 9. Second Stage Interventions: Reports: Pushing Effectively, Pushing, Stirrups/Leg Supports. Delivery Comments (Free Text/ Narrative):: Stage I: Slime Campa was admitted for elective induction of labor. On admission her cervix was dilated to 3 cm. She was GBS positive and was started on ampicillin for GBS prophylaxis. She received a total of 3 doses prior to delivery. She was started on Pitocin for induction of contractions approximately 2 hours after she was started on antibiotics. She had artificial rupture membranes with clear fluid. She was given an epidural for anesthesia. She progressed to complete and pushing. Stage II: On 07/20/2019 she had a normal vaginal delivery of a live female at 03:11. Apgars of 9 & 9. Weight of 3660 g (8 lbs 1.1 oz). Length of 20 inches. There was no nuchal cord. was delivered in WOODROW position. The cord was doubly clamped and cut by father of the . Infant was placed on mother's abdomen. Stage III: She had a spontaneous delivery of an intact placenta in Susan presentation. Three vessel cord. She was given pitocin and fundal massage. She had superficial abrasions on the bilateral labia minora that were hemostatic and not repaired. Mom and baby were stable to recovery. EBL of 200 mL. Diagnosis: Stroke: No - Discharge Data Discharge Date: 07/21/19 Discharge Disposition: Home, Self-Care 01 Condition: Good - Referral to Home Health Primary Care Physician: Norberto Barnes MD - Discharge Diagnosis/Problem(s) (1) 39 weeks gestation of SNOMED Code(s): 80986201 ICD Code: Z3A.39 - 39 WEEKS GESTATION OF Status: Acute Current Visit: Yes (2) GBS (group B Streptococcus carrier), +RV culture, currently SNOMED Code(s): 2339838570191, [id number], 5258166933577 ICD Code: O99.820 - STREPTOCOCCUS B CARRIER STATE COMPLICATING Status: Acute Current Visit: Yes (3) Anemia affecting SNOMED Code(s): 15116219 ICD Code: O99.019 - ANEMIA COMPLICATING , UNSPECIFIED TRIMESTER Status: Acute Current Visit: Yes (4) ancestry requiring population-specific genetic screening SNOMED Code(s): 49347075, 814910640, 031351056 ICD Code: Z13.79 - ENCNTR FOR OTH SCREENING FOR GENETIC AND CHROMSOML ANOMALIES Status: Acute Current Visit: Yes (5) Vaginal delivery SNOMED Code(s): 027128002 ICD Code: O80 - ENCOUNTER FOR FULL-TERM UNCOMPLICATED DELIVERY Status: Acute Current Visit: Yes - Patient Summary/Data Complications: None Consults: None Hospital Course: Slime Campa was admitted for elective induction of labor. On admission her cervix was dilated to 3 cm. She was GBS positive and was started on ampicillin for GBS prophylaxis. She received a total of 3 doses prior to delivery. She was given pitocin for augmentation. She had artificial rupture of membranes with clear fluid. She was given an epidural for anesthesia. She progressed to complete and began pushing. On 07/20/2019 she had a normal vaginal delivery of a live female at 03:11. Apgars of 9 and 9. Weight of 3660 g (8 pounds 1.1 ounces). Her course was uneventful. Recheck of her hemoglobin approximately 6 hours after delivery showed a hemoglobin of 8.4. Patient was asymptomatic from this anemia in the morning of day #0. Her pain was well controlled and she had minimal lochia. She was ambulating, tolerating a regular diet and voiding normally. She was breast and bottle feeding with minimal difficulty. She was afebrile and her hemoglobin was 8.4 on day #0 approximately 6 hours after delivery. She desired to be discharged home on the morning of PPD #1. Her blood type is O+. - Patient Instructions Diet: Regular Diet as Tolerated Activity: Apply Ice, As Tolerated Activity, Other: Nothing in the vagina for 6 weeks Driving: May Drive Today Showering/Bathing: May Shower Notify Provider of: Fever, Increased Pain, Swelling and Redness, Drainage, Nausea and/or Vomiting Other/Special Instructions: Please contact your physician's office if you have heavy vaginal bleeding enough to soak a pad in less than an hour for several hours. Monitor for any signs of an infection in the breasts with severe pain or redness of the breast. - Discharge Plan *PRESCRIPTION DRUG MONITORING PROGRAM REVIEWED*: Not Applicable *COPY OF PRESCRIPTION DRUG MONITORING REPORT IN PATIENT TOÑO: Not Applicable Home Medications: Home Meds Butalb/Acetaminophen/Caffeine [[id number]-[id number]-Mqdq 50-325-40] 1 each PO Q6HR PRN 07/02/19 [History] Cyclobenzaprine [Flexeril] 10 mg PO BID 07/02/19 [History] Vits #93/Iron Fum/FA [ Formula Tablet] 1 tab PO DAILY 07/02/19 [History] Acetaminophen [Tylenol] 650 mg PO Q6H PRN tablet 07/21/19 [Rx] Benzocaine/Menthol [Dermoplast Pain Relief [place]] 1 spray TOP ASDIRECTED PRN canister 07/21/19 [Rx] Docusate Sodium [Colace] 100 mg PO BID PRN cap 07/21/19 [Rx] Ferrous Sulfate 324 mg PO BIDMEALS tab.ec 07/21/19 [Rx] Hydrocortisone Acetate [Anucort-HC] 25 mg RECTAL BID PRN supp 07/21/19 [Rx] Ibuprofen [Motrin] 600 mg PO Q6H PRN tablet 07/21/19 [Rx] Witch Angie [Tucks] 1 pad TOP ASDIRECTED PRN pad 07/21/19 [Rx] Patient Handouts: Vaginal Delivery, Care After Referrals: Norberto Barnes MD [Primary Care Provider] - (Follow-up in 2 weeks for routine visit or earlier as needed.) - Discharge Summary/Plan Comment DC Time >30 min.: No - Patient Data Vitals - Most Recent: Last Vital Signs Temp 36.7 C 07/21/19 09:00 Pulse 78 07/21/19 05:36 Resp 16 07/20/19 15:04 BP 113/72 07/21/19 05:36 Pulse Ox 97 07/21/19 05:36 Weight - Most Recent: 90.718 kg I&O - Last 24 hours: Intake & Output 07/20/19 07/21/19 07/21/19 22:59 06:59 14:59 Intake Total 240 Balance 240 Lab Results - Last 24 hrs: Laboratory Results - last 24 hr 07/20/19 Range/Units 09:20 WBC 15.42 H (3.98-10.04) K/mm3 RBC 3.22 L (3.98-5.22) M/mm3 Hgb 8.4 L (11.2-15.7) gm/dl Hct 27.6 L (34.1-44.9) % MCV 85.7 (79.4-94.8) fl MCH 26.1 (25.6-32.2) pg MCHC 30.4 L (32.2-35.5) g/dl RDW Std Deviation 51.1 H (36.4-46.3) fL Plt Count 271 (182-369) K/mm3 MPV 9.3 L (9.4-12.3) fl Neut % (Auto) 75.5 H (34.0-71.1) % Lymph % (Auto) 15.4 L (19.3-51.7) % [place] % (Auto) 7.7 (4.7-12.5) % Eos % (Auto) 0.4 L (0.7-5.8) Baso % (Auto) 0.2 (0.1-1.2) % Neut # (Auto) 11.64 H (1.56-6.13) K/mm3 Lymph # (Auto) 2.38 (1.18-3.74) K/mm3 [place] # (Auto) 1.19 H (0.24-0.36) K/mm3 Eos # (Auto) 0.06 (0.04-0.36) K/mm3 Baso # (Auto) 0.03 (0.01-0.08) K/mm3 Manual Slide Review Abnormal smear Med Orders - Current: Current Medications Acetaminophen (Tylenol) 650 mg PO Q6H PRN PRN Reason: mild pain or fever Last Admin: 07/20/19 23:01 Dose: 650 mg Benzocaine/Menthol (Dermoplast Pain Relief [place]) 0 gm TOP ASDIRECTED PRN PRN Reason: Perineal Comfort Measure Last Admin: 07/20/19 04:51 Dose: 1 canister Docusate Sodium (Colace) 100 mg PO BID PRN PRN Reason: Constipation Ferrous Sulfate (Ferrous Sulfate) 324 mg PO BIDMEALS [facility] Last Admin: 07/21/19 09:00 Dose: 324 mg Hydrocortisone Acetate (Anucort-Hc) 25 mg RECTAL BID PRN PRN Reason: Hemorrhoid pain Oxytocin/Lactated Ringer's (Pitocin In Lr 10 Units/1,000 Ml) 10 unit in 1,000 mls @ 100 mls/hr IV TITRATE DAI; Protocol Ibuprofen (Motrin) 600 mg PO Q6H PRN PRN Reason: Mild pain or fever Last Admin: 07/21/19 09:00 Dose: 600 mg Prenat Multivit/[place]/Iron/Folic Ac ( Plus Iron) 1 each PO DAILY DAI Last Admin: 07/21/19 09:00 Dose: 1 each Witch Angie (Tucks) 1 pad TOP ASDIRECTED PRN PRN Reason: Perineal Comfort Measure Last Admin: 07/20/19 04:50 Dose: 1 jar Discontinued Medications Acetaminophen (Tylenol) 650 mg PO Q4H PRN PRN Reason: Headache Last Admin: 07/19/19 19:55 Dose: 650 mg Bupivacaine HCl (Sensorcaine-Mpf 0.25%) 10 ml .ROUTE .STK-MED ONE Stop: 07/19/19 00:01 Diphtheria/Tetanus/Acell Pertussis (Adacel) 0.5 ml IM .ONCE ONE Stop: 07/20/19 04:24 Last Admin: 07/20/19 06:21 Dose: Not Given Ephedrine Sulfate (Ephedrine Sulfate) 5 mg IVPUSH ASDIRECTED PRN PRN Reason: Hypotension Fentanyl (Sublimaze) 100 mcg EPIDUR Q3H PRN PRN Reason: Pain Fentanyl/Bupivacaine HCl (Fentanyl/Bupivacaine/Ns 2 Mcg-0.125% 100 Ml) 100 ml EPIDUR ASDIRECTED DAI Ampicillin Sodium 2 gm/ Sodium (Chloride) 100 mls @ 200 mls/hr IV ONETIME ONE Stop: 07/19/19 17:29 Last Admin: 07/19/19 17:43 Dose: 200 mls/hr Ampicillin Sodium 1 gm/ Sodium (Chloride) 100 mls @ 200 mls/hr IV Q4H DAI Last Admin: 07/20/19 00:54 Dose: 200 mls/hr Lactated Ringer's (Ringers, Lactated) 1,000 mls @ 100 mls/hr IV ASDIRECTED DAI Last Admin: 07/20/19 00:30 Dose: 100 mls/hr Oxytocin/Lactated Ringer's (Pitocin In Lr 10 Units/1,000 Ml) 10 unit in 1,000 mls @ 100 mls/hr IV .CONTINUOUS DAI; Protocol Last Admin: 07/20/19 04:50 Dose: 100 mls/hr Oxytocin/Lactated Ringer's (Pitocin In Lr 10 Units/1,000 Ml) 10 unit in 1,000 mls @ 12 mls/hr IV TITRATE DAI; Protocol Last Titration: 07/20/19 01:54 Dose: 14 munits/min, 84 mls/hr Lidocaine HCl (Xylocaine 1%) 50 ml INJECT ONETIME ONE Stop: 07/19/19 22:01 Last Admin: 07/20/19 07:29 Dose: Not Given Nalbuphine HCl (Nubain) 10 mg IVPUSH Q2H PRN PRN Reason: Pain Ondansetron HCl (Zofran) 4 mg IVPUSH Q4H PRN PRN Reason: Nausea/Vomiting Ondansetron HCl (Zofran) 4 mg IVPUSH ONETIME PRN PRN Reason: Nausea/Vomiting Sodium Chloride (Saline Flush) 10 ml FLUSH ASDIRECTED PRN PRN Reason: Keep Vein Open
[2019-07-21] MEDS: Benzocaine/Menthol 20%-0.5% Spray 56 GM Canister TOP PRN (10:18)
== END 2019-07-21 10:30 | disposition home or self-care (01) | DRG 807 ==
LOC: JD.OB 03:11 → OBSVTOIN 07-20 03:11 → JD.OB 07-20 03:11
PROVIDERS: ADMIT Obstetrics & Gynecology; ATTEND Obstetrics & Gynecology
PROC: 10907ZC Drainage of Amniotic Fluid, Therapeutic from Products of Conception, Via Natural or Artificial Opening (ICD-10-PCS; principal; 2019-07-20)
PROC: 10E0XZZ Delivery of Products of Conception, External Approach (ICD-10-PCS; 2019-07-20)
PROC: 3E033VJ Introduction of Other Hormone into Peripheral Vein, Percutaneous Approach (ICD-10-PCS; 2019-07-20)
PROC: 3E0R3BZ Introduction of Anesthetic Agent into Spinal Canal, Percutaneous Approach (ICD-10-PCS; 2019-07-20)
DX: O99.824 Streptococcus B carrier state complicating childbirth (principal); Z37.0 Single live birth; Z3A.39 39 weeks gestation of pregnancy; O71.89 Other specified obstetric trauma; O99.02 Anemia complicating childbirth; D64.9 Anemia, unspecified; Z91.040 Latex allergy status; Z13.79 Encounter for other screening for genetic and chromosomal anomalies
CPT/HCPCS: 36415; 51701; 59025; 59409; 85025; 86592; 86850; 86900; 86901; A9270-GY; J0290; J2590; J3490; J7050; J7120